=== PATIENT | male | born 1995 | race Caucasian/White ===

== ENCOUNTER 2016-08-25 19:58 | Emergency (ER) | payer OTHER ==
[2016-08-25 20:05] VITALS: RESP 18
[2016-08-25] MEDS ORDERED: HYDROcodone/APAP 5-325MG 1 EACH TAB PO STA (20:13)
--- NOTE | 2016-08-25 20:28 | ED ---
General Adult HPI - General Chief complaint: Extremity Injury, Upper Stated complaint: shoulder injury Time Seen by Provider: 08/25/16 20:07 Source: patient, family, RN notes reviewed Mode of arrival: ambulatory Limitations: no limitations - History of Present Illness Initial comments: 20-year-old male presenting for right shoulder injury. Patient states he was swimming yesterday and dove into a [place]. States when he was diving into [place] his right arm caught the water wrong and he felt his shoulder dislocate. He states he felt like he had relocated at that time however the pain has been persistent since then. He states he is having limited range of motion of the right arm. States he has dislocated his shoulders multiple times in the past several years. He denies any other injury during his dive into the leg. He denies any other significant medical history. He is not taking any medications for the pain. - Related Data Previous Rx's Medication Instructions Recorded HYDROcodone/APAP 5-325MG [[place] 1 tab PO Q6HR PRN #8 tab 08/25/16 5-325] Ibuprofen [Motrin] 800 mg PO Q8HR PRN #21 tab 08/25/16 Allergies Allergy/AdvReac Type Severity Reaction Status Date / Time codeine Allergy Rash/Hives Verified 08/25/16 20:30 Review of Systems ROS Statement: Those systems with pertinent positive or pertinent negative responses have been documented in the HPI. ROS Other: All systems not noted in ROS Statement are negative. Past Medical History Additional Past Medical History / Comment(s): Right shoulder dislocation History of Any Multi-Drug Resistant Organisms: None Reported Past Surgical History: Orthopedic Surgery Past Psychological History: No Psychological Hx Reported Smoking Status: Current every day smoker Past Alcohol Use History: None Reported Past Drug Use History: Marijuana General Exam - General Exam Comments Initial Comments: General: Awake and Alert. No acute distress. Does not appear acutely ill. Eyes: ISABEL, EOM intact. No nystagmus. No scleral icterus. HENT: Atraumatic, normocephalic. Mucous membranes moist. Trachea midline. Neck: The neck is supple, there is no tenderness or JVD. Cardiovascular: Regular rate and rhythm. No murmur, rub, or gallop is appreciated. Distal pulses intact, radial 2+ bilaterally. Respiratory: Lungs are clear to auscultation bilaterally. No wheezes, rales, rhonchi. No respiratory distress. Gastrointestinal: Soft, Nontender. No rebound or guarding. Non-distended. No masses or organomegaly noted. No CVA tenderness. Musculoskeletal: Right shoulder with mild tenderness overlying the lateral and posterior aspects. Range motion is somewhat limited. Painful range of motion with abduction and above 90 degrees. No gross deformity. No strength deficits. Neurological: A&Ox3. CN II-XII grossly intact, There are no obvious motor or sensory deficits. Coordination appears grossly intact. Speech is normal. Skin: Skin is warm and dry and no rashes or lesions are noted. Psychiatric: Cooperative, appropriate mood & affect, normal judgment. Limitations: no limitations Course Vital Signs 08/25/16 08/25/16 20:02 21:28 Temperature 99.3 F 98.9 F Pulse Rate 57 L 58 L Respiratory 18 18 Rate Blood Pressure 143/80 134/80 O2 Sat by Pulse 99 98 Oximetry Medical Decision Making - Medical Decision Making 20-year-old male presenting for right shoulder injury. Patient with history of recurrent shoulder dislocations. Shoulder does not appear grossly dislocated on initial exam. X-ray imaging was performed without evidence of acute fracture or dislocation. Patient was given medication for pain. Patient reevaluated and remained stable. Updated on imaging results. Discussed concerning for possible soft tissue injury. Patient placed in sling. Given orthopedic follow-up. Work note provided as well as Rx for pain medication. Discussed concerning signs symptoms requiring immediate return to the ED. Patient is agreeable with plan to discharge home. - Radiology Data Radiology results: report reviewed, image reviewed Disposition Clinical Impression: Right shoulder pain Disposition: HOME SELF-CARE Condition: Stable Instructions: Shoulder Pain (ED) Prescriptions: HYDROcodone/APAP 5-325MG [[place] 5-325] 1 tab PO Q6HR PRN #8 tab PRN Reason: Pain Ibuprofen [Motrin] 800 mg PO Q8HR PRN #21 tab PRN Reason: Pain Referrals: None,Stated [Primary Care Provider] - 1-2 days Kevin Benz DO [Doctor of Osteopathic Medicine] - 1-2 days Time of Disposition: 21:03
--- NOTE | 2016-08-25 20:40 | XR ---
EXAMINATION TYPE: XR shoulder complete RT DATE OF EXAM: 08/25/2016 COMPARISON: NONE HISTORY: Shoulder pain TECHNIQUE: 3 views FINDINGS: I see no fracture nor dislocation. Glenohumeral joint is intact. There are no pathologic ca lcifications. IMPRESSION: Negative right shoulder exam.
[2016-08-25 21:30] VITALS: BP 134/80; PULSE 58; TEMP 98.9
== END 2016-08-25 21:28 | disposition home or self-care (01) ==
LOC: EC 19:58
DX: M25.511 Pain in right shoulder (principal); F17.200 Nicotine dependence, unspecified, uncomplicated; Z88.5 Allergy status to narcotic agent
CPT/HCPCS: 99283